=== PATIENT | male | born 1935 | race Caucasian/White ===

== ENCOUNTER 2022-10-08 21:18 | Inpatient (IN) | payer MEDICARE, OTHER ==
[2022-10-08] MEDS ORDERED: Dexamethasone 10 MG/ML VIAL ONE (23:31)
[2022-10-09 00:30] LABS: #Eosinphils 0.1 thou/uL (0.0-0.7); #Lymphocytes 1.7 thou/uL (1.20-3.40); #Monocytes 1.6 thou/uL (0.11-0.59); #Neutrophils 9.3 thou/uL (1.40-6.50); %Basophils 0.2 % (0.0-1.0); %Lymphocytes 13.6 % (21.0-51.0); %Monocytes 12.6 % (0.0-10.0); %Neutrophils 72.7 % (42.0-75.0); Hemoglobin 12.6 g/dL (14.0-18.0); Mean Corpuscular HGB CONC 33.9 g/dL (32.0-36.0); Mean Corpuscular Hemoglobin 28.2 pg (27.0-31.0); Mean Corpuscular Volume 83.4 fl (78.0-98.0); Mean Platelet Volume 9.4 fL (7.4-10.4); Platelet Count 253 10x3/uL (130-400); RBC Distribution Width 13.1 % (11.5-14.5); Red Blood Cell (RBC) Count 4.46 mill/uL (4.70-6.10); White Blood Cell (WBC) Count 12.9 10x3/uL (4.8-10.8)
[2022-10-09 00:42] LABS: INR-International Normal Ratio 1.2; PTT 26.2 sec (22.9-36.1); Prothrombin Time 15.2 sec (12.0-14.7)
[2022-10-09] MEDS ORDERED: Ondansetron ODT 4 MG TAB PO PRN (01:07)
[2022-10-09] MEDS ORDERED: Ondansetron PF 4 MG/2 ML Vial IVP PRN (01:07)
[2022-10-09] MEDS ORDERED: Acetaminophen 325 MG TAB PO PRN (01:07)
[2022-10-09] MEDS ORDERED: Acetaminophen 650 MG Suppository PR PRN (01:07)
[2022-10-09 02:02] LABS: #Eosinphils 0.1 thou/uL (0.0-0.7); #Lymphocytes 1.1 thou/uL (1.20-3.40); #Monocytes 0.5 thou/uL (0.11-0.59); #Neutrophils 10.5 thou/uL (1.40-6.50); %Basophils 0.1 % (0.0-1.0); %Eosinophils 0.8 % (0.0-10.0); %Monocytes 3.7 % (0.0-10.0); %Neutrophils 86.4 % (42.0-75.0); Hemoglobin 12.6 g/dL (14.0-18.0); Mean Corpuscular HGB CONC 34.9 g/dL (32.0-36.0); Mean Corpuscular Hemoglobin 29.2 pg (27.0-31.0); Mean Corpuscular Volume 83.8 fl (78.0-98.0); Mean Platelet Volume 8.5 fL (7.4-10.4); Platelet Count 220 10x3/uL (130-400); RBC Distribution Width 12.8 % (11.5-14.5); Red Blood Cell (RBC) Count 4.33 mill/uL (4.70-6.10); White Blood Cell (WBC) Count 12.2 10x3/uL (4.8-10.8)
[2022-10-09 02:19] LABS: ALT (SGPT) 15 U/L (8-55); AST (SGOT) 17 U/L (5-34); Albumin 3.6 g/dL (3.4-4.8); Alkaline Phosphatase 63 U/L (40-110); Anion Gap 11 mmol/L (10-20); BUN (Urea Nitrogen) 15 mg/dL (8.4-25.7); Bilirubin, Total 0.5 mg/dL (0.2-1.2); Calc. Creatinine Clearance 0 mL/min (70-130); Calcium 9.1 mg/dL (7.8-10.44); Carbon Dioxide 24 mmol/L (23-31); Chloride 95 mmol/L (98-107); Estimated GFR 87; Globulin 3.7 g/dL (2.4-3.5); Glucose 141 mg/dL (83-110); Potassium 4.6 mmol/L (3.5-5.1); Protein, Total 7.3 g/dL (5.8-8.1); Sodium 125 mmol/L (136-145)
[2022-10-09] MEDS ORDERED: Dexamethasone 4 MG TAB PO SCH (13:00)
[2022-10-09] MEDS ORDERED: Ipratropium Bromide 0.06% Nasal Inhaler 15ml EA NARE SCH (13:00)
[2022-10-09] MEDS ORDERED: Acetaminophen 325 MG TAB ONE (13:32)
[2022-10-09 16:01] VITALS: BP 119/54
[2022-10-09] MEDS ORDERED: Artificial Tear Sol 15 ML BOT EA EYE SCH (16:30)
[2022-10-09] MEDS ORDERED: Atorvastatin Calcium 10 MG TAB PO SCH (21:00)
[2022-10-09] MEDS ORDERED: Melatonin 3 MG TAB PO SCH (21:00)
[2022-10-09] MEDS ORDERED: levETIRAcetam 500 MG TAB PO SCH (21:00)
[2022-10-10] MEDS ORDERED: Polyethylene Glycol 3350 17 GM Packet PO SCH (09:00)
[2022-10-10] MEDS ORDERED: Loratadine 10 MG TAB PO SCH (09:00)
[2022-10-10] MEDS ORDERED: Propranolol HCl LA 60 MG CAP PO SCH (09:00)
[2022-10-10] MEDS ORDERED: Amlodipine 5 MG TAB PO SCH (09:00)
[2022-10-10] MEDS ORDERED: Multivitamin W/ Minerals 1 TAB PO SCH (09:00)
== END 2022-10-09 13:45 | disposition short-term general hospital (02) | DRG 82 ==
LOC: ERS 21:18 → HS RAD 21:18 → EDSTATUS 23:24 → ERHOLD 23:50
PROVIDERS: ADMIT Student in an Organized Health Care Education/Training Program; ATTEND Family Medicine
DX: S06.5XAA Traumatic subdural hemorrhage with loss of consciousness status unknown, initial encounter (principal); G93.41 Metabolic encephalopathy; G93.6 Cerebral edema; E87.1 Hypo-osmolality and hyponatremia; W18.30XA Fall on same level, unspecified, initial encounter; D72.829 Elevated white blood cell count, unspecified; Z88.1 Allergy status to other antibiotic agents; Z88.2 Allergy status to sulfonamides; Z88.8 Allergy status to other drugs, medicaments and biological substances; Z79.899 Other long term (current) drug therapy; Z79.51 Long term (current) use of inhaled steroids; Z88.5 Allergy status to narcotic agent
CPT/HCPCS: 36415; 36416; 70450; 80053; 85025; 85610; 85730; 96374; J1100